=== PATIENT | male | born 1940 | race Caucasian/White ===

== ENCOUNTER → 2019-05-10 | Outpatient (CLI) | payer MEDICARE, BC ==
--- NOTE | 2019-05-10 17:01 | XR ---
EXAMINATION TYPE: XR chest 2V DATE OF EXAM: 05/10/2019 COMPARISON: NONE HISTORY: Chest pain TECHNIQUE: Frontal and lateral views of the chest are obtained. FINDINGS: Heart is enlarged. There is no heart failure. There is coarsening of the markings left low er lobe. Bony thorax is intact. IMPRESSION: Left lower lobe interstitial infiltrate and atelectasis. Cardiomegaly. No heart failure seen.
[2019-05-10 17:14] LABS: Basophils # (A) 0.1 k/uL (0-0.2); Basophils % (A) 1 %; Eosinophils # (A) 0.2 k/uL (0-0.7); Eosinophils % (A) 3 %; HCT 31.4 % (39.0-53.0); Lymphocytes # (A) 1.1 k/uL (1.0-4.8); Lymphocytes % (A) 19 %; MCH 29.7 pg (25.0-35.0); MCV 92.8 fL (80.0-100.0); Mean Platelet Volume 7.2; Monocytes # (A) 0.4 k/uL (0-1.0); Monocytes % (A) 7 %; Neutrophils # (A) 3.9 k/uL (1.3-7.7); Neutrophils % (A) 68 %; Platelet Count 367 k/uL (150-450); RBC 3.38 m/uL (4.30-5.90); RDW 14.1 % (11.5-15.5); WBC 5.7 k/uL (3.8-10.6)
[2019-05-10 23:42] LABS: African American GFR (CKD) 67.2 (60.0-200.0); Albumin/Globulin Ratio 1.9 (1.60-3.17); Anion Gap 9.9 mmol/L (4.00-12.00); BUN/Creat Ratio 20.83 Ratio (12.00-20.00); Calcium 9.3 mg/dL (8.7-10.3); Carbon Dioxide 26.1 mmol/L (21.6-31.8); Globulin 2.1 g/dL (1.6-3.3); Potassium 5.3 mmol/L (3.5-5.5); Total Bilirubin 0.6 mg/dL (0.2-1.2); Total Protein 6.1 g/dL (6.2-8.2)
[2019-05-10 23:49] LABS: T4, Free (Free Thyroxine) 1.3 ng/dL (0.80-1.80)
== END | disposition home or self-care (01) ==
LOC: LABWHC1 16:12
PROVIDERS: ATTEND Internal Medicine Cardiovascular Disease
DX: J98.11 Atelectasis (principal); R91.8 Other nonspecific abnormal finding of lung field; I11.9 Hypertensive heart disease without heart failure; I48.91 Unspecified atrial fibrillation
CPT/HCPCS: 36415; 71046; 80053; 83880; 84439; 84443; 85025

== ENCOUNTER 2019-05-15 15:18 | Inpatient (IN) | payer MEDICARE, BC ==
[2019-05-15 16:34] LABS: Glucose,Whole Blood 162 mg/dL (75-99)
[2019-05-15 16:39] VITALS: BMI 37.2
[2019-05-15] MEDS ORDERED: DIGOXIN 125 MCG TAB PO STA (17:15)
[2019-05-15] MEDS ORDERED: NITROGLYCERIN SL TABS 0.4 MG TAB SUBLINGUAL PRN (17:42)
[2019-05-15 18:03] LABS: Basophils % (A) 1 %; Eosinophils # (A) 0.3 k/uL (0-0.7); Eosinophils % (A) 4 %; HCT 32.8 % (39.0-53.0); HGB 10.5 gm/dL (13.0-17.5); Hypochromasia Slight; Lymphocytes # (A) 1.2 k/uL (1.0-4.8); Lymphocytes % (A) 19 %; MCHC 31.9 g/dL (31.0-37.0); MCV 94.2 fL (80.0-100.0); Mean Platelet Volume 7.1; Monocytes # (A) 0.4 k/uL (0-1.0); Monocytes % (A) 6 %; Neutrophils # (A) 4.2 k/uL (1.3-7.7); Neutrophils % (A) 68 %; Platelet Count 329 k/uL (150-450); RBC 3.48 m/uL (4.30-5.90); RDW 14.6 % (11.5-15.5); WBC 6.2 k/uL (3.8-10.6)
[2019-05-15 18:11] LABS: INR 1.1 (<1.2); Prothrombin Time 11.5 sec (9.0-12.0)
--- NOTE | 2019-05-15 18:42 | XR ---
EXAMINATION: XR chest 2V DATE AND TIME: 05/15/2019 5:39 PM CLINICAL INDICATION: PHH; pericardial effusion TECHNIQUE: Departmental protocol COMPARISON: 05/10/2019 FINDINGS: The lungs are clear except for the minimal partial left lung base airlessness seen on the p rior study. The pleural spaces are negative. The cardiac silhouette is markedly enlarged, unchanged. Tortuous thoracic aorta redemonstrated. The skeletal structures and soft tissues are negative for acute findings. IMPRESSION: Stable radiographic appearance.
[2019-05-15] MEDS: metFORMIN 500 MG TAB PO SCH (18:49)
[2019-05-15] MEDS: predniSONE 20 MG TAB PO SCH ×2 (18:50→21:37)
--- NOTE | 2019-05-15 19:51 | CONS ---
CONSULTATION Mr. Hodges is a 78-year-old gentleman with history of diabetes and hypertension who came to our office to be evaluated after a gap of 2 years on May 10 with complaints of exertional chest tightness, gaseous feeling and shortness of breath. He denies any dizziness, syncope. Usually the symptoms are resolved with rest. Denies any orthopnea or paroxysmal nocturnal dyspnea. His EKG showed evidence of atrial fibrillation with moderate to rapid ventricular response with a heart rate of 120. His blood pressure was about 124/80. The patient was found to have new onset atrial fibrillation and was advised to be hospitalized for further treatment. The patient, however, wanted outpatient treatment. The patient was started on Eliquis and also on metoprolol 25 mg p.o. b.i.d. He was also put on Imdur. He came today for followup. Had an echocardiogram done which showed a large pericardial effusion without any clear-cut tamponade picture. Because of new onset atrial fibrillation and large pericardial effusion, the patient is advised to be hospitalized for further evaluation. The patient is going to be started on steroids. Surgical consult will be obtained for possible pericardial window. PAST MEDICAL HISTORY: Significant for hypertension and hypercholesterolemia and also diabetes mellitus. 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 Patient had a nuclear stress test in 2017, which showed normal perfusion and function. MEDICATIONS: Include Celebrex 200 mg daily, lovastatin 40 mg daily, metformin 1000 mg twice daily. The patient was recently initiated on metoprolol 25 mg p.o. b.i.d., and Eliquis 5 mg p.o. b.i.d. ALLERGIES: THE PATIENT IS ALLERGIC TO NEUROMUSCULAR BLOCKERS. REVIEW OF SYSTEMS: The patient denied any recent weight gain. Negative for any visual changes or hearing loss. No history of any hemoptysis. Patient is complaining of shortness of breath. No orthopnea or paroxysmal nocturnal dyspnea. Negative for any claudication. Negative for nausea, hematuria, nocturia. Negative for any dizziness or memory loss, depression or hallucinations. PHYSICAL EXAMINATION: At this time reveals a 78-year-old gentleman who is alert, pleasant, does not appear to be in acute distress. Blood pressure is about 110/70, pulse rate is about 110. NECK: Supple. I could not see any definite jugular venous distention. HEART: S1 and S2 is heard. Irregular heart sounds, distant heart sounds. Lungs appear to be clear with some diminished breath sounds at bases. ABDOMEN: Soft. EXTREMITIES: No significant edema. IMPRESSION: 1. New onset atrial fibrillation. 2. Large pericardial effusion without any clear cut tamponade. 3. Hypertension. 4. Diabetes mellitus. 5. Hypercholesterolemia. PLAN: Admit patient to the hospital. Continue with beta blockers and probably add a small dose of digoxin for rate control. Continue IV fluids. Start him on steroids. Get a surgical consult for possible pericardial window. Further recommendations depending upon the clinical course. MMODL / IJN: [id number] /
[2019-05-15 20:48] LABS: Glucose,Whole Blood 151 mg/dL (75-99)
[2019-05-15] MEDS: METOPROLOL TARTRATE 25 MG TAB PO SCH (21:37)
[2019-05-15] MEDS: SODIUM CHLORIDE 0.9% 1,000 ML IV SCH (21:42)
[2019-05-16] MEDS ORDERED: DIGOXIN 125 MCG TAB PO ONE
[2019-05-16 06:23] LABS: Glucose,Whole Blood 149 mg/dL (75-99)
[2019-05-16 06:59] LABS: Basophils % (A) 0 %; Eosinophils % (A) 0 %; HCT 33.2 % (39.0-53.0); HGB 10.3 gm/dL (13.0-17.5); Hypochromasia Slight; Lymphocytes # (A) 0.6 k/uL (1.0-4.8); Lymphocytes % (A) 8 %; MCH 29.5 pg (25.0-35.0); MCHC 31.1 g/dL (31.0-37.0); Mean Platelet Volume 6.9; Monocytes # (A) 0.2 k/uL (0-1.0); Monocytes % (A) 3 %; Neutrophils # (A) 5.8 k/uL (1.3-7.7); Neutrophils % (A) 87 %; Platelet Count 328 k/uL (150-450); RBC 3.49 m/uL (4.30-5.90); WBC 6.6 k/uL (3.8-10.6)
[2019-05-16] MEDS: MELOXICAM 7.5 MG TAB PO SCH (08:48)
[2019-05-16] MEDS: ISOSORBIDE MONONITRATE ER 30 MG TAB.ER.24H PO SCH (08:48)
[2019-05-16] MEDS: PRAVASTATIN SODIUM 40 MG TAB PO SCH (08:49)
[2019-05-16] MEDS: SODIUM CHLORIDE 0.9% 1,000 ML IV SCH ×2 (08:49→20:52)
[2019-05-16] MEDS: predniSONE 20 MG TAB PO SCH (08:49)
[2019-05-16] MEDS: METOPROLOL TARTRATE 25 MG TAB PO SCH ×3 (08:51→20:52)
--- NOTE | 2019-05-16 08:56 | P.GSCN ---
History of Present Illness Consult date: 05/16/19 Reason for Consult: Large pericardial effusion Requesting physician: Jarred Velazco History of present illness: This is a 78-year-old gentleman who follows on an outpatient basis with Dr. Mario for primary care and Dr. Velazco for cardiology. He has a previous medical history of hypertension, hyperlipidemia, diabetes, skin cancer, and recent diagnosis of new onset atrial fibrillation on Eliquis for anticoa gulation. He had been lost to follow-up with cardiology for the past 2-3 years but began to develop chest congestion. He reported symptoms of increased shortness of breath with exertion, not much shortness of breath at rest, no lower extremity edema, and he denied any chest pain. He denied any other aggravating or alleviating symptoms. He sought care at Dr. Velazco's office and was found to be in atrial fibrillation at that time, he was recommended to be hospitalized for treatment, however the patient did not want to be admitted to the hospital. He was prescribed new medications including metoprolol, Imdur, and Eliquis and he began to feel better. Upon follow-up Dr. Velazco per formed a transthoracic echocardiogram in the cardiology office, results are not available but per Dr. Velazco's note the echocardiogram demonstrated a large pericardial effusion without tamponade physiology. Due to these findings the patient was direct admitted to [facility] with consultation placed for cardiothoracic surgery for possible pericardial window. Review of Systems Review of systems was completed and was negative except as noted. 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 History of Any Multi-Drug Resistant Organisms: None Reported Past Surgical History: Adenoidectomy, Cholecystectomy, Tonsillectomy Past Anesthesia/Blood Transfusion Reactions: No Reported Reaction Past Psychological History: No Psychological Hx Reported Smoking Status: Never smoker Past Alcohol Use History: Rare Past Drug Use History: None Reported - Past Family History Father Family Medical History: Prostate Disorder Additional Family Medical History / Comment(s): prostate CA Mother Family Medical History: Cancer Medications and Allergies Home Medications Medication Instructions Recorded Confirmed Type Apixaban [Eliquis] 5 mg PO BID 05/15/19 05/15/19 History Celecoxib [CeleBREX] 200 mg PO DAILY 05/15/19 05/15/19 History Cyanocobalamin [Vitamin B-12] 500 mcg PO DAILY 05/15/19 05/15/19 History Isosorbide Mononitrate ER [Imdur] 30 mg PO DAILY 05/15/19 05/15/19 History Krill Oil 500 mg PO DAILY 05/15/19 05/15/19 History Lisinopril [Zestril] 10 mg PO DAILY 05/15/19 05/15/19 History Metoprolol Tartrate 25 mg PO BID 05/15/19 05/15/19 History Nitroglycerin 0.4 mg SUBLINGUAL Q5M PRN 05/15/19 05/15/19 History Pravastatin Sodium [Pravachol] 40 mg PO DAILY 05/15/19 05/15/19 History Ubidecarenone [Co Q-10] 100 mg PO DAILY 05/15/19 05/15/19 History metFORMIN HCL 1,000 mg PO HS 05/15/19 05/15/19 History Allergies Allergy/AdvReac Type Severity Reaction Status Date / Time No Known Drug Allergies Allergy Itching Verified 05/15/19 18:35 Surgical - Exam Vital Signs Temp Pulse Resp BP Pulse Ox 97.4 F L 114 H 16 102/51 91 L 05/15/19 17:44 05/15/19 17:44 05/15/19 17:44 05/15/19 17:44 05/15/19 17:44 - General well developed, well nourished, no distress, no pain, obese - Eyes PERRL, normal ocular movement - ENT no hearing loss, dentures - Neck no masses, no bruits, trachea midline - Respiratory Lungs sounds clear bilaterally. Respirations even, nonlabored. Currently on room air with oxygen saturation 91-92%. No clubbing or cyanosis noted. - Cardiovascular S1, S2 present. No distant heart sounds noted. Irregular rate and rhythm, atrial fibrillation on telemetry. Palpable peripheral pulses bilaterally. No edema present. No calf pain or tenderness noted. - Abdomen Abdomen: soft, non tender, bowel sounds - Genitourinary Deferred - Rectum Deferred - Integumentary no rash, no growths - Neurologic normal coordination, normal sensation - Musculoskeletal normal posture - Psychiatric oriented to time, oriented to person, oriented to place, speech is normal, memory intact Results - Labs 05/16/19 06:02 Abnormal Lab Results - Last 24 Hours (Table) 05/15/19 05/15/19 05/15/19 Range/Units 16:33 17:45 20:48 RBC 3.48 L (4.30-5.90) m/uL Hgb 10.5 L (13.0-17.5) gm/dL Hct 32.8 L (39.0-53.0) % Lymphocytes # (1.0-4.8) k/uL POC Glucose (mg/dL) 162 H 151 H (75-99) mg/dL 05/16/19 05/16/19 Range/Units 06:02 06:22 RBC 3.49 L (4.30-5.90) m/uL Hgb 10.3 L (13.0-17.5) gm/dL Hct 33.2 L (39.0-53.0) % Lymphocytes # 0.6 L (1.0-4.8) k/uL POC Glucose (mg/dL) 149 H (75-99) mg/dL - Imaging Chest x-ray: report reviewed, image reviewed Assessment and Plan Assessment: 1. Large pericardial effusion without tamponade physiology 2. New onset atrial fibrillation, on Eliquis for anticoagulation, last dose 05/15/2019 3. Hypertension 4. Hyperlipidemia 5. Diabetes Plan: The patient was seen and examined at the bedside. Chart/diagnostics were reviewed. The case will be discussed in detail with Dr. Schultz. At this time the patient is in no acute distress. Continue current medication regimen. Continue to hold Eliquis until recommendations are made regarding pericardial effusion management. Usual treatment for pericardial effusion, namely pericardial drain versus pericardial window were discussed with the patient. Transthoracic echocardiogram was repeated this morning, will review the study with Dr. Schultz. More recommendations to follow. Thank you Dr. Velazco for this consult. We look forward to continuing to work with you in the care of your patient. Time with Patient: Greater than 30
--- NOTE | 2019-05-16 08:57 | ECHOF ---
Referral Reason:pericardial effusion MEASUREMENTS -------- HEIGHT: 172.7 cm WEIGHT: 110.7 kg BP: 115/81 IVSd: 1.5 cm (0.6 - 1.1) LVIDd: 5.3 cm (3.9 - 5.3) LVPWd: 1.4 cm (0.6 - 1.1) IVSs: 2.6 cm LVIDs: 1.4 cm LVPWs: 1.7 cm FINDINGS -------- Sinus rhythm. Limited Study for pericardial effusion. Overall left ventricular systolic function is normal with, an EF between 55 - 60 %. There is a large, generalized pericardial effusion present. There is evidence of cardiac tamponade. CONCLUSIONS -------- 1. Sinus rhythm. 2. Limited Study for pericardial effusion. 3. Overall left ventricular systolic function is normal with, an EF between 55 - 60 %. 4. There is a large, generalized pericardial effusion present. 5. There is possible cardiac tamponade. 7. study suboptimal for tamponade evaluation [employer] TECHNICIAN: Tanesha Mg RDCS
[2019-05-16 11:37] LABS: Glucose,Whole Blood 209 mg/dL (75-99)
[2019-05-16] MEDS: INSULIN ASPART (NovoLOG) 100 UNIT/ML VIAL SQ SCH ×3 (12:00→20:51)
[2019-05-16 12:03] LABS: Albumin 3.5 g/dL (3.5-5.0); Calcium 8.8 mg/dL (8.4-10.2); Potassium 5.1 mmol/L (3.5-5.1); Total Bilirubin 0.7 mg/dL (0.2-1.3); Total Protein 6.4 g/dL (6.3-8.2)
--- NOTE | 2019-05-16 14:50 | P.PN ---
Subjective Progress Note Date: 05/16/19 This is a 78-year-old gentleman who follows on an outpatient basis with Dr. Mario for primary care and Dr. Velazco for cardiology. He has a previous medical history of hypertension, hyperlipidemia, diabetes, skin cancer, and recent diagnosis of new onset atrial fibrillation on Eliquis for anticoagula tion. Patient had been experiencing symptoms of exertional shortness of breath and for this reason went to see Dr. Velazco, an echocardiogram with Doppler study was performed in the office which revealed a large pericardial effusion and patient was sent over to the hospital for further evaluation and treatment. I pressure today 133/80 with a heart rate of 118, 93% on room air. White blood cell count 6.6, hemoglobin 10.3, platelet count 328. Sodium 140, potassium 5.1, BUN 26 and creatinine 1.0. BNP 2550, TSH 0.56. A limited echocardiogram with Doppler study was performed here which showed a normal ejection fraction with a large generalized pericardial effusion and possible tamponade not. Objective - Vital Signs Vital signs: Vital Signs Temp 98.7 F 05/16/19 11:22 Pulse 111 H 05/16/19 11:22 Resp 18 05/16/19 11:22 BP 133/81 05/16/19 11:22 Pulse Ox 93 L 05/16/19 11:22 Intake & Output 05/15/19 05/16/19 05/16/19 18:59 06:59 18:59 Intake Total 225 480 Output Total 600 250 Balance -600 -25 480 Weight 111 kg 111.5 kg Intake: Intake, IV Titration 225 Amount Sodium Chloride 0.9% 1, 225 000 ml @ 75 mls/hr IV . [id number] [facility] Rx#:[id number] Oral 480 Output: Urine 600 250 Other: Voiding Method Toilet Toilet Toilet # Voids 2 - Exam PHYSICAL EXAMINATION: GENERAL: 78-year-old gentleman in no acute distress at the time of my examination HEENT: Head is atraumatic, normocephalic. Pupils equal, round. Sclera anicteric. Conjunctiva are clear. Mucous membranes of the mouth are moist. Neck is supple. There is no elevated jugular venous pressure. No carotid bru it is heard. HEART EXAMINATION: Heart S1 and S2 irregularly irregular CHEST EXAMINATION: Lungs reveal diminished air entry to bilateral bases. ABDOMEN: Soft, nontender. Bowel sounds are heard. No organomegaly noted. EXTREMITIES: 2+ peripheral pulses with no evidence of peripheral edema and no calf tenderness noted. NEUROLOGIC patient is awake, alert and oriented X3. . - Labs CBC & Chem 7: 05/16/19 06:02 05/16/19 06:02 Labs: Abnormal Lab Results - Last 24 Hours (Table) 05/15/19 05/15/19 05/15/19 Range/Units 16:33 17:45 20:48 RBC 3.48 L (4.30-5.90) m/uL Hgb 10.5 L (13.0-17.5) gm/dL Hct 32.8 L (39.0-53.0) % Lymphocytes # (1.0-4.8) k/uL BUN (9-20) mg/dL Glucose (74-99) mg/dL POC Glucose (mg/dL) 162 H 151 H (75-99) mg/dL 05/16/19 05/16/19 05/16/19 Range/Units 06:02 06:02 06:22 RBC 3.49 L (4.30-5.90) m/uL Hgb 10.3 L (13.0-17.5) gm/dL Hct 33.2 L (39.0-53.0) % Lymphocytes # 0.6 L (1.0-4.8) k/uL BUN 26 H (9-20) mg/dL Glucose 157 H (74-99) mg/dL POC Glucose (mg/dL) 149 H (75-99) mg/dL 05/16/19 Range/Units 11:35 RBC (4.30-5.90) m/uL Hgb (13.0-17.5) gm/dL Hct (39.0-53.0) % Lymphocytes # (1.0-4.8) k/uL BUN (9-20) mg/dL Glucose (74-99) mg/dL POC Glucose (mg/dL) 209 H (75-99) mg/dL Assessment and Plan Plan: Assessment and plan #1 new onset atrial fibrillation, paroxysmal #2 large pericardial effusion without any clear-cut tympanotomy #3 hypertension #4 diabetes #5 hyperlipidemia Plan Eliquis continues to be on hold, patient has been seen and evaluated by cardiothoracic surgery and the plan is to proceed with pericardial window. We will continue to follow. DNP note has been reviewed, I agree with a documented findings and plan of care. Patient was seen and examined.
[2019-05-16 16:30] LABS: Glucose,Whole Blood 177 mg/dL (75-99)
[2019-05-16] MEDS: metFORMIN 500 MG TAB PO SCH (16:50)
[2019-05-16 20:47] LABS: Glucose,Whole Blood 210 mg/dL (75-99)
[2019-05-17 06:17] LABS: Glucose,Whole Blood 107 mg/dL (75-99)
[2019-05-17] MEDS: INSULIN ASPART (NovoLOG) 100 UNIT/ML VIAL SQ SCH ×4 (06:26→20:42)
[2019-05-17 06:28] LABS: HCT 33.2 % (39.0-53.0); HGB 10.3 gm/dL (13.0-17.5); Hypochromasia Slight; MCH 29.4 pg (25.0-35.0); MCHC 30.9 g/dL (31.0-37.0); Mean Platelet Volume 6.9; Platelet Count 363 k/uL (150-450); RBC 3.49 m/uL (4.30-5.90); RDW 14.2 % (11.5-15.5); WBC 9.7 k/uL (3.8-10.6)
[2019-05-17 06:36] LABS: African American GFR (CKD) >90 (>60 ml/min/1.73 sqM); Anion Gap 11 mmol/L; Blood Urea Nitrogen 27 mg/dL (9-20); Calcium 8.8 mg/dL (8.4-10.2); Carbon Dioxide 23 mmol/L (22-30); Chloride 106 mmol/L (98-107); Glucose 103 mg/dL (74-99); Potassium 4.8 mmol/L (3.5-5.1); Sodium 140 mmol/L (137-145)
[2019-05-17 06:40] LABS: INR 1.1 (<1.2); Partial Thromboplastin Time 24.3 sec (22.0-30.0); Prothrombin Time 11.7 sec (9.0-12.0)
[2019-05-17] MEDS: MELOXICAM 7.5 MG TAB PO SCH (07:43)
[2019-05-17] MEDS: METOPROLOL TARTRATE 25 MG TAB PO SCH ×3 (07:43→20:15)
[2019-05-17] MEDS: PRAVASTATIN SODIUM 40 MG TAB PO SCH (07:43)
[2019-05-17] MEDS: ISOSORBIDE MONONITRATE ER 30 MG TAB.ER.24H PO SCH (07:43)
[2019-05-17] MEDS ORDERED: IV FLUID CONTINUATION 1,000 ML IV ONE (10:08)
[2019-05-17 10:23] LABS: Glucose,Whole Blood 95 mg/dL (75-99)
[2019-05-17] MEDS ORDERED: ONDANSETRON 4 MG/2 ML VIAL IVP ONE (10:28)
--- NOTE | 2019-05-17 10:47 | PN ---
PROGRESS NOTE Mr. Hodges is a 78-year-old male with recently diagnosed atrial fibrillation symptoms of dyspnea, was found to have large amount of pericardial effusion of unknown etiology. He continued to have some dyspnea on exertion, although better. He is still in atrial fibrillation with controlled ventricular response. He has no chest pain. No dizziness. No palpitation. He was evaluated by Dr. Schultz and scheduled to undergo pericardial window today. He continues to be on isosorbide mononitrate 30 mg daily. His anticoagulation is on hold. He is on Mobic, metformin 1 gram twice a day, metoprolol tartrate 25 mg 3 times a day and pravastatin 40 mg daily. PHYSICAL EXAMINATION: Blood pressure 145/70 with the heart rate in the 70s. LUNGS: Clear. HEART: Irregular, irregular. S1, S2. No S3. No rub. ABDOMEN: Soft, nontender. EXTREMITIES: No edema. LAB DATA: Lab data revealed a hemoglobin 10.3, BUN and creatinine 27 and 0.93. IMPRESSION: 1. Large pericardial effusion of unclear etiology. Scheduled for pericardial window. 2. Atrial fibrillation, recent onset. 3. Hyperlipidemia. 4. Diabetes mellitus. RECOMMENDATION: Patient will proceed with the pericardial window today, anticoagulation will be re- initiated after and then depending on the results of his fluid analysis, further recommendation will be made. MMODL / IJN: [id number] /
[2019-05-17 11:30] LABS: Glucose,Whole Blood 95 mg/dL (75-99)
[2019-05-17 13:59] LABS: Glucose,Whole Blood 82 mg/dL (75-99)
[2019-05-17] MEDS: SODIUM CHLORIDE 0.9% 1,000 ML IV SCH (15:39)
[2019-05-17] MEDS ORDERED: FUROSEMIDE 10 MG/ML 2 ML VIAL ONE (15:41)
[2019-05-17] MEDS ORDERED: SUCCINYLCHOLINE CHLORIDE 100 MG/5 ML SYR IV ONE (15:41)
[2019-05-17] MEDS ORDERED: NEOSTIGMINE 1 MG/ML 10 ML VIAL ONE (15:41)
[2019-05-17] MEDS ORDERED: ROCURONIUM BROMIDE 10 MG/ML 10 ML VIAL IV ONE (15:41)
[2019-05-17] MEDS ORDERED: GLYCOPYRROLATE 0.2 MG/ML 2 ML VIAL ONE (15:41)
[2019-05-17] MEDS ORDERED: fentaNYL (PF) 50 MCG/ML 2 ML AMP ONE (15:41)
[2019-05-17] MEDS ORDERED: LIDOCAINE 1% INJ 10MG/ML (20 ML MDV) ONE (15:41)
[2019-05-17] MEDS ORDERED: MIDAZOLAM 2 MG/2 ML VIAL ONE (15:41)
[2019-05-17] MEDS ORDERED: PHENYLEPHRINE-0.9% NACL SYG 1 MG/10 ML SYRINGE ONE (15:41)
[2019-05-17] MEDS ORDERED: ETOMIDATE 2 MG/ML 10 ML VIAL ONE (15:41)
[2019-05-17] MEDS ORDERED: SODIUM CHLORIDE 0.9% 1,000 ML IV ONE (16:03)
[2019-05-17] MEDS ORDERED: LACTATED RINGERS 1,000 ML IV ONE (16:35)
[2019-05-17] MEDS ORDERED: LABETALOL 5 MG/ML VIAL MDV IVP ONE (17:50)
--- NOTE | 2019-05-17 18:06 | XR ---
EXAMINATION TYPE: XR chest 1V portable DATE OF EXAM: 05/17/2019 COMPARISON: 05/15/2019 HISTORY: Pericardial window. Surgery. TECHNIQUE: Single frontal view of the chest is obtained. FINDINGS: There is pulmonary vascular congestion. Heart is enlarged. There is pulmonary edema. There are chest leads. There is some infiltrate and atelectasis left lower lobe. IMPRESSION: There is new congestive heart failure compared to last exam.
[2019-05-17] MEDS: metFORMIN 500 MG TAB PO SCH (20:14)
[2019-05-17] MEDS: HYDROcodone/APAP 5-325MG 1 EACH TAB PO PRN (20:14)
[2019-05-17 20:36] LABS: Glucose,Whole Blood 173 mg/dL (75-99)
[2019-05-18] MEDS: SODIUM CHLORIDE 0.9% 1,000 ML IV SCH ×2 (02:04→17:01)
[2019-05-18] MEDS: HYDROcodone/APAP 5-325MG 1 EACH TAB PO PRN (02:07)
[2019-05-18 06:33] LABS: Glucose,Whole Blood 124 mg/dL (75-99)
[2019-05-18] MEDS: INSULIN ASPART (NovoLOG) 100 UNIT/ML VIAL SQ SCH ×4 (06:34→20:18)
[2019-05-18 07:33] LABS: HCT 33.9 % (39.0-53.0); HGB 10.8 gm/dL (13.0-17.5); Hypochromasia Slight; MCH 30.1 pg (25.0-35.0); MCV 94.2 fL (80.0-100.0); Platelet Count 348 k/uL (150-450); RBC 3.59 m/uL (4.30-5.90); WBC 9.4 k/uL (3.8-10.6)
[2019-05-18 07:46] LABS: Calcium 8.6 mg/dL (8.4-10.2); Potassium 4.8 mmol/L (3.5-5.1)
--- NOTE | 2019-05-18 07:48 | OP ---
OPERATIVE REPORT DATE OF THE SURGERY: 05/17/2019 SURGEON: Dr. Morgan Anaya. APPOINTMENT SPECIALIST: Chirag aGuthier PREOPERATIVE DIAGNOSIS: Large pericardial effusion with early tamponade physiology. POSTOPERATIVE DIAGNOSIS: Large bloody pericardial effusion. PROCEDURE: Subxiphoid pericardiostomy. INDICATION FOR SURGERY: The patient is a 78-year-old gentleman who is known to be in atrial fibrillation recently and started on anticoagulation and treatment. He had an echocardiogram as an outpatient that showed large pericardial effusion. The patient was admitted to the hospital for assessment and repeat echo in the hospital confirmed the effusion and with even early signs of tamponade, although the patient's hemodynamics were stable. The patient has been taken for elective pericardial window today. The risks, benefits, and alternative were discussed with him and his family. They understood and agreed to proceed. DESCRIPTION OF THE PROCEDURE: The patient in supine position. The right radial arterial line was started and subsequently general endotracheal anesthesia was induced. His systolic blood pressure went from around 180 to around 90 systolic. The chest, abdomen and both lower extremities were prepped and draped using ChloraPrep. Ioban was used to cover the skin. A 5 cm incision was made centered on the xiphoid bone. Using the Bovie, dissection proceeded under the xiphoid bone and went midline into the mediastinal fat. The anterior surface of the pericardium was exposed and it was quite deep in view of the patient's body habitus. We made an incision with a 15 blade and suctioned a total of 1100 mL of dark bloody effusion. A piece of pericardium was excised for pathology. The surface of the heart appeared normal and the pericardium did not appear thickened. A 19-Arabic Liam drain was left in the posterior pericardium under vision and brought through a separate stab incision and affixed to the skin. The incision was closed using Vicryl 0 for the fascia, Vicryl 2-0 for the subcutaneous tissue and Vicryl 4-0 for the skin in a subcuticular manner. The pericardial fluid will be sent for cytology. The patient was extubated in the operating room and transferred to the recovery room in stable condition. MMODL / IJN: [id number] /
--- NOTE | 2019-05-18 08:50 | XR ---
EXAMINATION TYPE: XR chest 1V portable DATE OF EXAM: 05/18/2019 COMPARISON: 05/17/2019 INDICATION: Post pericardial window TECHNIQUE: Single frontal view of the chest is obtained. FINDINGS: The heart size is mildly prominent. The pulmonary vasculature is normal. Mild infiltrate is in the left base IMPRESSION: 1. Mild cardiomegaly. 2. Left lower lobe infiltrate.
[2019-05-18] MEDS: MELOXICAM 7.5 MG TAB PO SCH (09:07)
[2019-05-18] MEDS: ISOSORBIDE MONONITRATE ER 30 MG TAB.ER.24H PO SCH (09:07)
[2019-05-18] MEDS: METOPROLOL TARTRATE 25 MG TAB PO SCH ×3 (09:09→20:18)
[2019-05-18] MEDS: PRAVASTATIN SODIUM 40 MG TAB PO SCH (09:10)
[2019-05-18 11:30] LABS: Glucose,Whole Blood 136 mg/dL (75-99)
--- NOTE | 2019-05-18 13:26 | P.PN ---
Subjective Progress Note Date: 05/18/19 Principal diagnosis: Pericardial effusion This is a pleasant 78-year-old gentleman who follows with Dr. Velazco in the office. He was recently diagnosed atrial fibrillation with symptoms of dyspnea and was found to have large amount of pericardial effusion of unknown etiology by echo. He underwent pericardial window yesterday with 1100 mL of bloody drainage. His anticoagulation has been on hold. Upon examination, patient is sitting up in a chair. He has discomfort as site of chest tube but no other chest pain. He has no dizziness, palpitations and his breathing is at his baseline. He remains in atrial fibrillation with a fairly well-controlled ventricular response. He is currently on isosorbide 30 mg by mouth daily, metoprolol 25 mg by mouth 3 times a day and pravastatin 40 mg by mouth daily. Objective - Vital Signs Vital signs: Vital Signs Temp 97 F L 05/18/19 12:00 Pulse 100 05/18/19 12:00 Resp 18 05/18/19 12:00 BP 119/82 05/18/19 12:00 Pulse Ox 96 05/18/19 07:19 Intake & Output 05/17/19 05/18/19 05/18/19 18:59 06:59 18:59 Intake Total 910 368 Output Total 603 910 400 Balance 307 -910 -32 Intake: IV 910 Invasive Line 2 10 Oral 368 Output: Chest Tube Drainage 210 350 Chest Tube Mediastinal 210 350 Urine 600 700 50 Estimated Blood Loss 3 Other: Voiding Method Toilet Urinal Urinal # Voids 2 350 - Exam PHYSICAL EXAMINATION: HEENT: Head is atraumatic, normocephalic. Pupils equal, round. Neck is supple. There is no elevated jugular venous pressure. HEART EXAMINATION: Heart sounds irregularly irregular, S1 and S2 normal. No murmur or gallop heard. CHEST EXAMINATION: Lungs are clear to auscultation and precussion. No chest wall tenderness is noted on palpation or with deep breathing. Chest tube noted ABDOMEN: Soft, obese, nontender. Bowel sounds are heard. No organomegaly noted. EXTREMITIES: No evidence of peripheral edema and no calf tenderness noted. NEUROLOGIC patient is awake, alert and oriented x3. . - Labs CBC & Chem 7: 05/18/19 06:52 05/18/19 06:52 Labs: Abnormal Lab Results - Last 24 Hours (Table) 05/17/19 05/18/19 05/18/19 Range/Units 20:35 06:32 06:52 RBC 3.59 L (4.30-5.90) m/uL Hgb 10.8 L (13.0-17.5) gm/dL Hct 33.9 L (39.0-53.0) % BUN (9-20) mg/dL Glucose (74-99) mg/dL POC Glucose (mg/dL) 173 H 124 H (75-99) mg/dL 05/18/19 05/18/19 Range/Units 06:52 11:29 RBC (4.30-5.90) m/uL Hgb (13.0-17.5) gm/dL Hct (39.0-53.0) % BUN 27 H (9-20) mg/dL Glucose 119 H (74-99) mg/dL POC Glucose (mg/dL) 136 H (75-99) mg/dL Assessment and Plan Assessment: #1 large pericardial effusion of unclear etiology, status post pericardial window with chest tube in place #2 recent onset atrial fibrillation, persistent #3 hyperlipidemia #4 diabetes mellitus Plan: From cardiology perspective, after discussion with Tanesha Baltazar NP-Maddie, we will resume anticoagulation. We will continue to follow the patient and provide further recommendations accordingly. PRESSFITTER note has been reviewed, I agree with a documented findings and plan of care. Patient was seen and examined.
--- NOTE | 2019-05-18 14:42 | P.PN ---
Subjective Progress Note Date: 05/18/19 Principal diagnosis: Large bloody pericardial effusion. Previous medical history of hypertension, hyperlipidemia, diabetes, skin cancer, recent diagnosis of new onset atrial fibrillation on closer anticoagulation. POD #1 subxiphoid pericardiostomy The patient is currently sitting up in a recliner in no acute distress. States pain is controlled on current medication regimen. Denies shortness of breath. Subxiphoid pericardiostomy tube present, remains to waterseal. Patient has been ambulatory around the room without difficulty. No new concerns. Objective - Vital Signs Vital signs: Vital Signs Temp 97.4 F L 05/18/19 07:19 Pulse 90 05/18/19 08:00 Resp 20 05/18/19 08:00 BP 119/74 05/18/19 07:19 Pulse Ox 96 05/18/19 07:19 Intake & Output 05/17/19 05/18/19 05/18/19 18:59 06:59 18:59 Intake Total 910 360 Output Total 603 910 400 Balance 307 -910 -40 Intake: IV 910 Invasive Line 2 10 Oral 360 Output: Chest Tube Drainage 210 350 Chest Tube Mediastinal 210 350 Urine 600 700 50 Estimated Blood Loss 3 Other: Voiding Method Toilet Urinal Urinal # Voids 2 350 - Constitutional General appearance: Present: cooperative, no acute distress, obese - Respiratory Details: Lungs sounds clear bilaterally. Respirations even, nonlabored. Currently on 4 L nasal cannula with oxygen saturation 94%. Only able to achieve 750 mL on his incentive spirometry. - Cardiovascular Details: S1, S2 present. No distant heart sounds noted. Irregular rate and rhythm, uncontrolled atrial fibrillation on telemetry. Palpable peripheral pulses bilaterally. No edema present. No calf pain or tenderness noted. Subxiphoid pericardiostomy tube present to waterseal, 210 mL serosanguineous drainage overnight, 350 mL since surgery, no air leak present. - Gastrointestinal Gastrointestinal Comment(s): Abdomen soft, nontender, nondistended. Bowel sounds present. Tolerating diet. - Genitourinary Genitourinary Comment(s): Continues to void clear, yellow urine. - Integumentary Integumentary Comment(s): Skin is warm and dry with evidence of good perfusion. - Neurologic Neurologic: Present: CNII-XII intact - Musculoskeletal Musculoskeletal: Present: gait normal, strength equal bilaterally - Psychiatric Psychiatric: Present: A&O x's 3, appropriate affect, intact judgment & insight - Allied health notes Allied health notes reviewed: nursing - Labs CBC & Chem 7: 05/18/19 06:52 05/18/19 06:52 Labs: Abnormal Lab Results - Last 24 Hours (Table) 05/17/19 05/18/19 05/18/19 Range/Units 20:35 06:32 06:52 RBC 3.59 L (4.30-5.90) m/uL Hgb 10.8 L (13.0-17.5) gm/dL Hct 33.9 L (39.0-53.0) % BUN (9-20) mg/dL Glucose (74-99) mg/dL POC Glucose (mg/dL) 173 H 124 H (75-99) mg/dL 05/18/19 Range/Units 06:52 RBC (4.30-5.90) m/uL Hgb (13.0-17.5) gm/dL Hct (39.0-53.0) % BUN 27 H (9-20) mg/dL Glucose 119 H (74-99) mg/dL POC Glucose (mg/dL) (75-99) mg/dL - Imaging and Cardiology Chest x-ray: report reviewed, image reviewed Assessment and Plan Assessment: 1. Large bloody pericardial effusion, status post subxiphoid pericardiostomy 2. New onset atrial fibrillation, on Eliquis for anticoagulation 3. Hypertension 4. Hyperlipidemia 5. Diabetes Plan: 1. Continue subxiphoid pericardiostomy tube for another 24 hours to waterseal. Monitor drainage. 2. Atrial fibrillation management per cardiology. May restart Eliquis for anticoagulation from our standpoint. 3. Wean O2 as tolerated. Encourage incentive spirometry use 10 times every hour while awake. 4. Increase activity, ambulate in hallway. 5. Pain control with current medication regimen. 6. More recommendations to follow. Time with Patient: Greater than 30
[2019-05-18] MEDS ORDERED: SENNOSIDES-DOCUSATE SODIUM 1 EACH TAB PO PRN (15:14)
[2019-05-18 16:57] LABS: Glucose,Whole Blood 137 mg/dL (75-99)
[2019-05-18] MEDS: metFORMIN 500 MG TAB PO SCH (17:01)
[2019-05-18 20:16] LABS: Glucose,Whole Blood 152 mg/dL (75-99)
[2019-05-18] MEDS: APIXABAN 5 MG TAB PO SCH (20:19)
[2019-05-19] MEDS: SODIUM CHLORIDE 0.9% 1,000 ML IV SCH ×2 (05:00→15:15)
[2019-05-19 05:33] LABS: HCT 34.7 % (39.0-53.0); HGB 11.1 gm/dL (13.0-17.5); Hypochromasia Slight; MCH 29.9 pg (25.0-35.0); MCHC 32.1 g/dL (31.0-37.0); Mean Platelet Volume 7.1; Platelet Count 313 k/uL (150-450); RBC 3.73 m/uL (4.30-5.90); RDW 14.7 % (11.5-15.5); WBC 8.4 k/uL (3.8-10.6)
[2019-05-19 05:44] LABS: African American GFR (CKD) >90 (>60 ml/min/1.73 sqM); Anion Gap 8 mmol/L; Blood Urea Nitrogen 23 mg/dL (9-20); Calcium 8.7 mg/dL (8.4-10.2); Carbon Dioxide 25 mmol/L (22-30); Chloride 106 mmol/L (98-107); Glucose 107 mg/dL (74-99); Potassium 4.4 mmol/L (3.5-5.1); Sodium 139 mmol/L (137-145)
[2019-05-19] MEDS: INSULIN ASPART (NovoLOG) 100 UNIT/ML VIAL SQ SCH ×4 (06:39→21:16)
[2019-05-19 06:44] LABS: Glucose,Whole Blood 111 mg/dL (75-99)
--- NOTE | 2019-05-19 07:47 | XR ---
EXAMINATION TYPE: XR chest 2V DATE OF EXAM: 05/19/2019 COMPARISON: 05/18/2019 HISTORY: 78-year-old male effusion TECHNIQUE: PA and lateral views FINDINGS: Heart mildly enlarged. Continued retrocardiac and left basilar opacity with small effusion. Some impr ovement in aeration from prior exam. IMPRESSION: 1. Mild cardiomegaly. 2. Small left pleural effusion with left basilar and retrocardiac atelectasis and/or consolidation sh ows slight improvement prior.
[2019-05-19] MEDS: APIXABAN 5 MG TAB PO SCH (08:31)
[2019-05-19] MEDS: PRAVASTATIN SODIUM 40 MG TAB PO SCH (08:31)
[2019-05-19] MEDS: METOPROLOL TARTRATE 25 MG TAB PO SCH ×3 (08:31→21:17)
[2019-05-19] MEDS: MELOXICAM 7.5 MG TAB PO SCH (08:33)
[2019-05-19] MEDS: ISOSORBIDE MONONITRATE ER 30 MG TAB.ER.24H PO SCH (08:38)
[2019-05-19 11:58] LABS: Glucose,Whole Blood 120 mg/dL (75-99)
--- NOTE | 2019-05-19 12:18 | PN ---
PROGRESS NOTE Ms Hodges is a 78-year-old gentleman who was admitted to hospital with new onset atrial fibrillation and large pericardial effusion. He underwent pericardial window, still has the mediastinal tube in place. He is otherwise doing well, remains in AFIB with controlled ventricular rate. His anticoagulant had been restarted yesterday. PHYSICAL EXAM: He is comfortable at rest. Heart rate is 97 beats per minute, blood pressure is 137/80, respiratory rate is 16, O2 sat is 92% on room air. There is no jugular venous distention. Chest exam reveals good air entry bilaterally. Heart exam reveals first and second heart sounds. No gallop. No pericardial rub. Abdomen is soft. Exam of the extremities reveals mild edema, peripheral pulses are felt. Labs show a hemoglobin of 11.1, potassium is 4.4, creatinine is 0.9. Patient is currently on Eliquis 5 b.i.d., Imdur 30 q. daily, Lopressor 25 t.i.d., Pravachol 40 q. daily. ASSESSMENT: 1. Persistent atrial fibrillation with controlled ventricular rate. 2. Large pericardial effusion, status post pericardial window. PLAN: Patient is stable from cardiac standpoint. He will be discharged home whenever CT Surgery okays it. MMODL / IJN: [id number] /
--- NOTE | 2019-05-19 12:21 | P.PN ---
Subjective Progress Note Date: 05/19/19 Principal diagnosis: Large bloody pericardial effusion. Previous medical history of hypertension, hyperlipidemia, diabetes, skin cancer, recent diagnosis of new onset atrial fibrillation on closer anticoagulation. POD #2 subxiphoid pericardiostomy The patient is currently sitting up in a recliner in no acute distress. States pain is controlled on current medication regimen. Denies shortness of breath. Subxiphoid pericardiostomy tube present, remains to waterseal. Patient has been ambulatory in the hallway without difficulty. No new concerns. Objective - Vital Signs Vital signs: Vital Signs Temp 98.8 F 05/19/19 08:21 Pulse 107 H 05/19/19 08:21 Resp 18 05/19/19 08:21 BP 128/75 05/19/19 08:21 Pulse Ox 93 L 05/19/19 08:21 Intake & Output 05/18/19 05/19/19 05/19/19 18:59 06:59 18:59 Intake Total 968 480 Output Total 1100 50 Balance -132 -50 480 Weight 111.8 kg Intake: Oral 968 480 Output: Chest Tube Drainage 1050 50 Chest Tube Mediastinal 1050 50 Urine 50 Other: Voiding Method Urinal Urinal Toilet Urinal # Voids 2 2 # Bowel Movements 1 - Constitutional General appearance: Present: cooperative, no acute distress, obese - Respiratory Details: Lungs sounds clear bilaterally. Respirations even, nonlabored. Currently on room air with oxygen saturation 92%. Only able to achieve 1000 mL on his incentive spirometry. - Cardiovascular Details: S1, S2 present. No distant heart sounds noted. Irregular rate and rhythm, uncontrolled atrial fibrillation on telemetry. Palpable peripheral pulses bilaterally. No edema present. No calf pain or tenderness noted. Subxiphoid pericardiostomy tube present to waterseal, 50 mL serous drainage in the last 24 hours, no air leak present. - Gastrointestinal Gastrointestinal Comment(s): Abdomen soft, nontender, nondistended. Bowel sounds present. Tolerating diet. - Genitourinary Genitourinary Comment(s): Continues to void clear, yellow urine. - Integumentary Integumentary Comment(s): Skin is warm and dry with evidence of good perfusion. Mid chest incision well approximated with Dermabond, no redness or drainage. - Neurologic Neurologic: Present: CNII-XII intact - Musculoskeletal Musculoskeletal: Present: gait normal, strength equal bilaterally - Psychiatric Psychiatric: Present: A&O x's 3, appropriate affect, intact judgment & insight - Allied health notes Allied health notes reviewed: nursing - Labs CBC & Chem 7: 05/19/19 05:13 05/19/19 05:13 Labs: Abnormal Lab Results - Last 24 Hours (Table) 05/18/19 05/18/19 05/19/19 Range/Units 16:42 20:15 05:13 RBC 3.73 L (4.30-5.90) m/uL Hgb 11.1 L (13.0-17.5) gm/dL Hct 34.7 L (39.0-53.0) % BUN (9-20) mg/dL Glucose (74-99) mg/dL POC Glucose (mg/dL) 137 H 152 H (75-99) mg/dL 05/19/19 05/19/19 05/19/19 Range/Units 05:13 06:33 11:56 RBC (4.30-5.90) m/uL Hgb (13.0-17.5) gm/dL Hct (39.0-53.0) % BUN 23 H (9-20) mg/dL Glucose 107 H (74-99) mg/dL POC Glucose (mg/dL) 111 H 120 H (75-99) mg/dL - Imaging and Cardiology Chest x-ray: report reviewed, image reviewed Assessment and Plan Assessment: 1. Large bloody pericardial effusion, status post subxiphoid pericardiostomy 2. New onset atrial fibrillation, on Eliquis for anticoagulation 3. Hypertension 4. Hyperlipidemia 5. Diabetes Plan: 1. Subxiphoid pericardiostomy tube discontinued. 2. Atrial fibrillation management per cardiology. Eliquis discontinued, felt to be the cause of the patient's bleeding. Stroke risk vs. mortality risk from pericardial bleeding was discussed in detail with the patient and family by Dr. Schultz. 3. Encourage incentive spirometry use 10 times every hour while awake. 4. Increase activity, ambulate in hallway. 5. Pain control with current medication regimen. 6. Patient may be discharged to home from our standpoint when ok with cardiology. Follow up with Dr. Anaya in the office in 1 week. Time with Patient: Greater than 30
[2019-05-19 16:56] LABS: Glucose,Whole Blood 249 mg/dL (75-99)
[2019-05-19] MEDS: metFORMIN 500 MG TAB PO SCH (17:19)
[2019-05-19 21:07] LABS: Glucose,Whole Blood 135 mg/dL (75-99)
[2019-05-20] MEDS: SODIUM CHLORIDE 0.9% 1,000 ML IV SCH (05:00)
[2019-05-20 06:37] LABS: Glucose,Whole Blood 120 mg/dL (75-99)
[2019-05-20 08:30] VITALS: BP 126/71; PULSE 107; TEMP 98.8
[2019-05-20] MEDS: INSULIN ASPART (NovoLOG) 100 UNIT/ML VIAL SQ SCH (08:32)
[2019-05-20] MEDS: METOPROLOL TARTRATE 25 MG TAB PO SCH (08:45)
[2019-05-20] MEDS: PRAVASTATIN SODIUM 40 MG TAB PO SCH (08:45)
[2019-05-20] MEDS: MELOXICAM 7.5 MG TAB PO SCH (08:45)
[2019-05-20] MEDS: ISOSORBIDE MONONITRATE ER 30 MG TAB.ER.24H PO SCH (08:45)
[2019-05-20 10:30] VITALS: RESP 16
--- NOTE | 2019-05-20 13:02 | DS ---
DISCHARGE SUMMARY DATE OF ADMISSION: 05/15/2019 DATE OF DISCHARGE: 05/20/2019 FINAL DIAGNOSIS: Large pericardial effusion. PROCEDURES PERFORMED: Pericardial window. HOSPITAL COURSE: This is a 78-year-old gentleman who was admitted to hospital with a large pericardial effusion and new onset atrial fibrillation. The patient initially presented to Dr. Velazco, his primary search manager, with new onset atrial fibrillation, was started on an anticoagulant, 5 days later had an echo that showed a large pericardial effusion due to which he was admitted to the hospital. The patient underwent pericardial window. The chest tube was removed yesterday. This morning he is doing well. Remains in atrial fibrillation, controlled ventricular rate. Blood pressure is normal. There is no jugular venous distention. Chest is clear to auscultation and percussion. Heart exam reveals first and second heart sounds, irregular rhythm. Exam of extremities did not reveal any edema. Peripheral pulses are palpable. PLAN: Patient had hemorrhagic pericardial effusion. The cardiothoracic surgeon did not feel comfortable sending the patient home on an anticoagulant, hence, this is being stopped at this time. The patient understands the risk of stroke. CONDITION AT THE TIME OF DISCHARGE: He is hemodynamically stable and is free of significant symptoms. Discharge medications include insulin, Imdur, Mobic, Glucophage, Lopressor, Pravachol, Senokot. FOLLOWUP: Patient will be followed up by Dr. Velazco in the office. MMODL / KANDIN: [id number] /
== END 2019-05-20 11:49 | disposition home or self-care (01) | DRG 271 ==
LOC: 3SCARD 15:59
PROVIDERS: ADMIT Internal Medicine Cardiovascular Disease; ATTEND Internal Medicine Cardiovascular Disease
PROC: 02BN0ZX Excision of Pericardium, Open Approach, Diagnostic (ICD-10-PCS; principal; 2019-05-17 15:40)
PROC: 0W9D00Z Drainage of Pericardial Cavity with Drainage Device, Open Approach (ICD-10-PCS; principal; 2019-05-17 15:40)
DX: I31.3 Pericardial effusion (noninflammatory) (principal); I48.1 Persistent atrial fibrillation; E11.9 Type 2 diabetes mellitus without complications; E78.00 Pure hypercholesterolemia, unspecified; E78.5 Hyperlipidemia, unspecified; G47.30 Sleep apnea, unspecified; I10 Essential (primary) hypertension; I48.0 Paroxysmal atrial fibrillation; K21.9 Gastro-esophageal reflux disease without esophagitis; Z79.01 Long term (current) use of anticoagulants; Z79.1 Long term (current) use of non-steroidal anti-inflammatories (NSAID); Z79.84 Long term (current) use of oral hypoglycemic drugs; Z79.899 Other long term (current) drug therapy; Z80.42 Family history of malignant neoplasm of prostate; Z85.828 Personal history of other malignant neoplasm of skin
CPT/HCPCS: 71045; 71046; 80048; 80053; 83880; 84443; 85025; 85027; 85610; 85730; 86850; 86900; 86901; 88108; 88305; 93308; 94660

== ENCOUNTER 2019-05-30 17:12 | Observation (INO) | payer MEDICARE, BC ==
[2019-05-30 18:31] LABS: Basophils # (A) 0.1 k/uL (0-0.2); Basophils % (A) 1 %; Eosinophils # (A) 0.3 k/uL (0-0.7); Eosinophils % (A) 5 %; HCT 33.3 % (39.0-53.0); HGB 10.2 gm/dL (13.0-17.5); Lymphocytes # (A) 1.3 k/uL (1.0-4.8); Lymphocytes % (A) 20 %; MCH 27.4 pg (25.0-35.0); MCHC 30.5 g/dL (31.0-37.0); Mean Platelet Volume 6.9; Monocytes # (A) 0.5 k/uL (0-1.0); Monocytes % (A) 8 %; Neutrophils # (A) 4.1 k/uL (1.3-7.7); Neutrophils % (A) 64 %; Platelet Count 277 k/uL (150-450); RDW 14.3 % (11.5-15.5); WBC 6.4 k/uL (3.8-10.6)
[2019-05-30 18:35] LABS: Albumin 3.8 g/dL (3.5-5.0); Calcium 9.4 mg/dL (8.4-10.2); Magnesium 2.2 mg/dL (1.6-2.3); Total Bilirubin 0.8 mg/dL (0.2-1.3); Total Protein 6.7 g/dL (6.3-8.2)
[2019-05-30 18:41] LABS: INR 1.1 (<1.2); Partial Thromboplastin Time 24.4 sec (22.0-30.0); Prothrombin Time 11.2 sec (9.0-12.0)
[2019-05-30 18:42] LABS: Potassium 5.2 mmol/L (3.5-5.1)
--- NOTE | 2019-05-30 18:43 | XR ---
EXAMINATION TYPE: XR chest 2V DATE OF EXAM: 05/30/2019 COMPARISON: 05/19/2019 HISTORY: Syncope. Difficulty breathing TECHNIQUE: Frontal and lateral views of the chest are obtained. FINDINGS: There is mild atelectasis at the left lung base. There is mild blunting left costophrenic angle. Heart is enlarged. There are chest leads. There are no hilar masses. IMPRESSION: There is pleural reaction and atelectasis at the left lung base improved compared to las t exam. No heart failure.
[2019-05-30] MEDS ORDERED: DILTIAZEM DRIP BOLUS FROM BAG 1 MG SOLN IV ONE (19:56)
--- NOTE | 2019-05-30 19:59 | ED ---
General Adult HPI - General Chief complaint: Shortness of Breath Stated complaint: SOB Time Seen by Provider: 05/30/19 17:15 Source: patient Mode of arrival: ambulatory Limitations: no limitations - History of Present Illness Initial comments: The patient is a 78-year-old male who presents to the emergency room with reported shortness of breath. The patient does have a history of pericardial effusion with a pericardial window which was performed by Dr. Anaya on May 17. States he's been short of breath since before the surgery. He felt that at this time that he should be feeling better. Reports that he can barely walk across a room without becoming short of breath and have to stop and rest. He did follow up with his surgeon in office. States that he does have an appointment coming up with Dr. Carrera on June 13. The patient is concerned that he has had reaccumulation of the fluid. He denies any chest pain. No orthopnea. He denies a history of COPD or asthma. No lower extremity swelling. Patient denies any abdominal pain or changes in bowel or bladder habits. Denies any melanotic stools or hematochezia. Reports good by mouth intake. The patient does have a history of A. fib. States he's been taking his medications as directed. The patient is not on any anticoagulants. his pericardial fluid was grossly bloody and they thought that it may have been secondary to anticoagulant use therefore he was taken off. The patient denies cough, hemoptysis, fevers or chills. There are no other alleviating, precipita ting or modifying factors - Related Data Home Medications Medication Instructions Recorded Confirmed Cyanocobalamin [Vitamin B-12] 500 mcg PO DAILY 05/15/19 05/30/19 Isosorbide Mononitrate ER [Imdur] 30 mg PO DAILY 05/15/19 05/30/19 Krill Oil 500 mg PO DAILY 05/15/19 05/30/19 Lisinopril [Zestril] 10 mg PO DAILY 05/15/19 05/30/19 Nitroglycerin 0.4 mg SUBLINGUAL Q5M PRN 05/15/19 05/30/19 Pravastatin Sodium [Pravachol] 40 mg PO DAILY 05/15/19 05/30/19 Ubidecarenone [Co Q-10] 100 mg PO DAILY 05/15/19 05/30/19 metFORMIN HCL 1,000 mg PO HS 05/15/19 05/30/19 Previous Rx's Medication Instructions Recorded Metoprolol Tartrate [Lopressor] 50 mg PO BID #60 tab 06/01/19 Allergies Allergy/AdvReac Type Severity Reaction Status Date / Time No Known Drug Allergies Allergy Itching Verified 05/30/19 18:25 Review of Systems ROS Statement: Those systems with pertinent positive or pertinent negative responses have been documented in the HPI. ROS Other: All systems not noted in ROS Statement are negative. 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 History of Any Multi-Drug Resistant Organisms: None Reported Past Surgical History: Adenoidectomy, Cholecystectomy, Tonsillectomy Past Anesthesia/Blood Transfusion Reactions: No Reported Reaction Past Psychological History: No Psychological Hx Reported Smoking Status: Never smoker Past Alcohol Use History: Rare Past Drug Use History: None Reported - Past Family History Father Family Medical History: Prostate Disorder Additional Family Medical History / Comment(s): prostate CA Mother Family Medical History: Cancer Brother(s) Additional Family Medical History / Comment(s): Patient has one brother, he is alive, no major medical problems. Sister(s) Additional Family Medical History / Comment(s): Patient has 1 sister and she is living. No major medical problems. Patient has 3 children with no major medical problems. General Exam Limitations: no limitations General appearance: alert, in no apparent distress Head exam: Present: atraumatic, normocephalic, normal inspection Eye exam: Present: normal appearance, PERRL, EOMI. Absent: scleral icterus, conjunctival injection, periorbital swelling ENT exam: Present: normal exam, mucous membranes moist Neck exam: Present: normal inspection. Absent: tenderness, meningismus, lymphadenopathy Respiratory exam: Present: normal lung sounds bilaterally. Absent: respiratory distress, wheezes, rales, rhonchi, stridor Cardiovascular Exam: Present: tachycardia, irregular rhythm, normal heart sounds. Absent: systolic murmur, diastolic murmur, rubs, gallop, clicks GI/Abdominal exam: Present: soft, normal bowel sounds. Absent: distended, tenderness, guarding, rebound, rigid Extremities exam: Present: normal inspection, full ROM, normal capillary refill. Absent: tenderness, pedal edema, joint swelling, calf tenderness Back exam: Present: normal inspection Neurological exam: Present: alert, oriented X3, CN II-XII intact Psychiatric exam: Present: normal affect, normal mood Skin exam: Present: warm, dry, intact, normal color. Absent: rash Course Vital Signs 05/30/19 05/30/19 05/30/19 17:14 17:53 19:03 Temperature 98.0 F 98.7 F Pulse Rate 87 114 H Pulse Rate [ 115 H Loin Trimmer ] Respiratory 20 18 Rate Blood Pressure 113/71 113/69 Blood Pressure [Left Arm] O2 Sat by Pulse 98 96 Oximetry 05/30/19 05/30/19 05/30/19 20:06 20:44 21:07 Temperature Pulse Rate 107 H 111 H 95 Pulse Rate [ Loin Trimmer ] Respiratory 18 18 18 Rate Blood Pressure 115/78 101/70 125/94 Blood Pressure [Left Arm] O2 Sat by Pulse 95 95 98 Oximetry 05/30/19 05/30/19 05/30/19 21:15 21:36 22:15 Temperature Pulse Rate 118 H 112 H 120 H Pulse Rate [ Loin Trimmer ] Respiratory 18 18 18 Rate Blood Pressure 125/87 95/66 110/59 Blood Pressure [Left Arm] O2 Sat by Pulse 97 98 98 Oximetry 05/30/19 05/31/19 05/31/19 23:35 00:21 01:14 Temperature Pulse Rate 91 81 88 Pulse Rate [ Loin Trimmer ] Respiratory 18 18 18 Rate Blood Pressure 88/51 112/75 100/53 Blood Pressure [Left Arm] O2 Sat by Pulse 98 97 98 Oximetry 05/31/19 05/31/19 05/31/19 02:31 04:23 06:06 Temperature 98 F Pulse Rate 85 80 91 Pulse Rate [ Loin Trimmer ] Respiratory 18 18 18 Rate Blood Pressure 131/70 106/73 128/83 Blood Pressure [Left Arm] O2 Sat by Pulse 98 95 94 L Oximetry 05/31/19 05/31/19 05/31/19 07:00 08:00 09:44 Temperature Pulse Rate 81 99 Pulse Rate [ Loin Trimmer ] Respiratory 14 21 87 H Rate Blood Pressure 109/95 117/73 Blood Pressure [Left Arm] O2 Sat by Pulse 99 Oximetry 05/31/19 05/31/19 13:26 13:45 Temperature 98.1 F 97.6 F Pulse Rate 85 Pulse Rate [ 99 Loin Trimmer ] Respiratory 18 20 Rate Blood Pressure 128/67 Blood Pressure 128/76 [Left Arm] O2 Sat by Pulse 98 96 Oximetry EKG Findings - EKG Comments: EKG Findings:: EKG demonstrates atrial fibrillation with rapid ventricular response. QRS 88. QTC 491. No acute ST segment elevations. There is T-wave inversions in V2 and V3. Q waves in lead 3. Medical Decision Making - Medical Decision Making Upon arrival the patient was placed into room 11. He is hooked up to continuous pulse ox and cardiac monitoring. I did perform a bedside cardiac ultrasound which demonstrates a small amount of anterior pericardial fluid. No posterior fluid is identified. Images are placed on the chart. I did recommend laboratory studies as well as a chest x-ray. A 12-lead EKG is performed which demonstrates the patient is in atrial fibrillation with a rapid ventricular response. Upon return of the results I did discuss them with the patient. I did recommend treating the patient's heart rate with Cardizem. Peripheral IV had been established and the patient was started on 5 mg of Cardizem per hour without a bolus as his blood pressure is slightly low. The patient's laboratory studies are essentially unremarkable. Chest x-ray does not demonstrate any signs of fluid overload. I recommended hospital admission for a repeat echo in the morning for which the patient did agree. I called and discussed case with Dr. Anaya who refused the admission. I then called and discussed the case with Dr. Cabrera who did accept admission for the patient. I will place cardiology on consult. The patient remained in stable condition awaiting a bed on the floor - Lab Data Result diagrams: 05/31/19 05:43 05/31/19 05:43 Lab Results 05/30/19 05/30/19 05/30/19 Range/Units 17:36 17:36 17:36 WBC 6.4 (3.8-10.6) k/uL RBC 3.70 L (4.30-5.90) m/uL Hgb 10.2 L (13.0-17.5) gm/dL Hct 33.3 L (39.0-53.0) % MCV 90.0 (80.0-100.0) fL MCH 27.4 (25.0-35.0) pg MCHC 30.5 L (31.0-37.0) g/dL RDW 14.3 (11.5-15.5) % Plt Count 277 (150-450) k/uL Neutrophils % 64 % Lymphocytes % 20 % Monocytes % 8 % Eosinophils % 5 % Basophils % 1 % Neutrophils # 4.1 (1.3-7.7) k/uL Lymphocytes # 1.3 (1.0-4.8) k/uL Monocytes # 0.5 (0-1.0) k/uL Eosinophils # 0.3 (0-0.7) k/uL Basophils # 0.1 (0-0.2) k/uL PT 11.2 (9.0-12.0) sec INR 1.1 (<1.2) APTT 24.4 (22.0-30.0) sec Sodium 139 (137-145) mmol/L Potassium 5.2 H (3.5-5.1) mmol/L Chloride 106 (98-107) mmol/L Carbon Dioxide 23 (22-30) mmol/L Anion Gap 10 mmol/L BUN 27 H (9-20) mg/dL Creatinine 1.22 (0.66-1.25) mg/dL Est GFR (CKD-EPI)AfAm 66 (>60 ml/min/1.73 sqM) Est GFR (CKD-EPI)NonAf 57 (>60 ml/min/1.73 sqM) Glucose 92 (74-99) mg/dL Calcium 9.4 (8.4-10.2) mg/dL Magnesium 2.2 (1.6-2.3) mg/dL Total Bilirubin 0.8 (0.2-1.3) mg/dL AST 24 (17-59) U/L ALT 15 L (21-72) U/L Alkaline Phosphatase 68 (38-126) U/L Troponin I (0.000-0.034) ng/mL NT-Pro-B Natriuret Pep pg/mL Total Protein 6.7 (6.3-8.2) g/dL Albumin 3.8 (3.5-5.0) g/dL 05/30/19 05/30/19 Range/Units 17:36 17:36 WBC (3.8-10.6) k/uL RBC (4.30-5.90) m/uL Hgb (13.0-17.5) gm/dL Hct (39.0-53.0) % MCV (80.0-100.0) fL MCH (25.0-35.0) pg MCHC (31.0-37.0) g/dL RDW (11.5-15.5) % Plt Count (150-450) k/uL Neutrophils % % Lymphocytes % % Monocytes % % Eosinophils % % Basophils % % Neutrophils # (1.3-7.7) k/uL Lymphocytes # (1.0-4.8) k/uL Monocytes # (0-1.0) k/uL Eosinophils # (0-0.7) k/uL Basophils # (0-0.2) k/uL PT (9.0-12.0) sec INR (<1.2) APTT (22.0-30.0) sec Sodium (137-145) mmol/L Potassium (3.5-5.1) mmol/L Chloride (98-107) mmol/L Carbon Dioxide (22-30) mmol/L Anion Gap mmol/L BUN (9-20) mg/dL Creatinine (0.66-1.25) mg/dL Est GFR (CKD-EPI)AfAm (>60 ml/min/1.73 sqM) Est GFR (CKD-EPI)NonAf (>60 ml/min/1.73 sqM) Glucose (74-99) mg/dL Calcium (8.4-10.2) mg/dL Magnesium (1.6-2.3) mg/dL Total Bilirubin (0.2-1.3) mg/dL AST (17-59) U/L ALT (21-72) U/L Alkaline Phosphatase (38-126) U/L Troponin I <0.012 (0.000-0.034) ng/mL NT-Pro-B Natriuret Pep 3850 pg/mL Total Protein (6.3-8.2) g/dL Albumin (3.5-5.0) g/dL Disposition Clinical Impression: Acute respiratory insufficiency, Atrial fibrillation with RVR, S/P pericardial window creation Disposition: ADMITTED IP TO THIS HOSP Condition: Good Is patient prescribed a controlled substance at d/c from ED?: No Decision to Admit Reason: Admit from EC Decision Date: 05/30/19 Decision Time: 19:59
[2019-05-30] MEDS ORDERED: DILTIAZEM 125 MG in SODIUM CHLORIDE 0.9% 100 ML IV SCH (20:00)
[2019-05-30] MEDS ORDERED: NALOXONE 0.4 MG/ML 1 ML VIAL IV PRN (20:00)
[2019-05-31] MEDS: SODIUM CHLORIDE 0.9% 1,000 ML IV SCH (02:31)
[2019-05-31 06:14] LABS: Basophils # (A) 0.1 k/uL (0-0.2); Basophils % (A) 1 %; Eosinophils # (A) 0.3 k/uL (0-0.7); Eosinophils % (A) 6 %; HCT 32.8 % (39.0-53.0); HGB 10.6 gm/dL (13.0-17.5); Hypochromasia Slight; Lymphocytes # (A) 1.2 k/uL (1.0-4.8); Lymphocytes % (A) 24 %; MCH 29.7 pg (25.0-35.0); MCHC 32.3 g/dL (31.0-37.0); MCV 91.9 fL (80.0-100.0); Mean Platelet Volume 6.9; Monocytes # (A) 0.4 k/uL (0-1.0); Monocytes % (A) 7 %; Neutrophils # (A) 3.2 k/uL (1.3-7.7); Neutrophils % (A) 61 %; Platelet Count 234 k/uL (150-450); RBC 3.57 m/uL (4.30-5.90); RDW 14.2 % (11.5-15.5); WBC 5.2 k/uL (3.8-10.6)
[2019-05-31 06:27] LABS: Calcium 9.1 mg/dL (8.4-10.2); Potassium 4.6 mmol/L (3.5-5.1)
[2019-05-31] MEDS: PRAVASTATIN SODIUM 40 MG TAB PO SCH (09:42)
[2019-05-31] MEDS: INSULIN ASPART (NovoLOG) 100 UNIT/ML VIAL SQ SCH ×4 (09:43→21:01)
[2019-05-31] MEDS: LISINOPRIL 10 MG TAB PO SCH (09:43)
[2019-05-31] MEDS ORDERED: NITROGLYCERIN SL TABS 0.4 MG TAB SUBLINGUAL PRN (14:47)
--- NOTE | 2019-05-31 15:00 | P.HPIM ---
History of Present Illness H&P Date: 05/31/19 Chief Complaint: Shortness of breath This is a 78-year-old male patient of Dr. Mario and Dr. Velazco with a past medical history of diabetes mellitus type 2, chronic atrial fibrillation, pericardial effusion, hypertension, hyperlipidemia, obstructive sleep apnea on CPAP. Patient gives history that he was having difficulty breathing and was seen a doctor polys office and had echocardiogram was then directly admitted to the hospital on May 15 through May 20 for pericardial effusion. Patient underwent a subxiphoid pericardiostomy with Dr. Anaya on May 17. Pericardial fluid showed reactive mesothelial cells and atypical lymphocytes. No malignant cells noted. Pericardial biopsy revealed chronic inflammation, no acute pericarditis. Patient was stabilized and discharged home. He was not resumed on anticoagulation because pericardial fluid was grossly bloody. He denies any blood in his stools. Patient states he has had follow-up with Dr. Anaya in the outpatient setting. Patient states he has increasing shortness of breath especially with exertion. He denies orthopnea. He states his legs feel weak. He denies any numbness or tingling. He denies any nausea. No chest pain or cough. He denies any palpitations. Patient came and required [facility] emergency center for evaluation. EKG atrial fibrillation with RVR running 114. Patient was afebrile, blood pressure 113/71, pulse ox 98%. Hemoglobin 10.2, platelet count 277, white count 6.4. Sodium 139, potassium 4.2, chloride 106, CO2 23, BUN 27, creatinine 1.22, blood sugar 92. Troponin was negative. ProBNP 3850. Chest x-ray reveals pleural reaction and atelectasis at the left lung base improved compared to last exam. Patient was started on Cardizem drip and admitted to the cardiac stepdown unit and cardiology consult requested. Review of Systems Constitutional: Reports fatigue, Reports weakness, Denies anorexia, Denies chills, Denies fever, Denies poor appetite Ears, nose, mouth and throat: Reports vertigo, Denies headache, Denies nasal congestion, Denies nasal discharge, Denies sore throat Cardiovascular: Reports dyspnea on exertion, Reports lightheadedness, Reports shortness of breath, Denies chest pain, Denies leg edema, Denies orthopnea, Denies palpitations, Denies syncope Respiratory: Reports dyspnea, Reports sleep apnea, Denies cough, Denies cough with sputum, Denies excessive sputum, Denies hemoptysis, Denies home oxygen Gastrointestinal: Denies abdominal pain, Denies diarrhea, Denies loss of appetit e, Denies nausea, Denies vomiting Genitourinary: Denies dysuria, Denies urinary frequency Musculoskeletal: Denies muscle weakness, Denies myalgias Integumentary: Denies pruritus, Denies rash, Denies wounds Neurological: Denies change in mentation, Denies confusion, Denies gait dysfunction, Denies numbness, Denies weakness Psychiatric: Denies anxiety, Denies depression Endocrine: Denies fatigue, Denies weight change Past Medical History Past Medical History: Atrial Fibrillation, Cancer, Diabetes Mellitus, GERD/Reflux, Hyperlipidemia, Hypertension, Musculoskeletal Disorder, Sleep Apnea/CPAP/BIPAP Additional Past Medical History / Comment(s): a-fib as of 05/10/19, 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 He drinks alcohol rarely. No illicit drug use. 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 He lives at home with his . Past Drug Use History: None Reported - Past Family History Father Family Medical History: Prostate Disorder Additional Family Medical History / Comment(s): Father at age 78 from prostate cancer. Mother Family Medical History: Cancer Additional Family Medical History / Comment(s): Mother at age 91 from old age. Brother(s) Additional Family Medical History / Comment(s): Patient has one brother, he is alive, no major medical problems. Sister(s) Additional Family Medical History / Comment(s): Patient has 1 sister and she is living. No major medical problems. Patient has 3 children with no major medical problems. Medications and Allergies Home Medications Medication Instructions Recorded Confirmed Type Celecoxib [CeleBREX] 200 mg PO DAILY 05/15/19 05/30/19 History Cyanocobalamin [Vitamin B-12] 500 mcg PO DAILY 05/15/19 05/30/19 History Isosorbide Mononitrate ER [Imdur] 30 mg PO DAILY 05/15/19 05/30/19 History Krill Oil 500 mg PO DAILY 05/15/19 05/30/19 History Lisinopril [Zestril] 10 mg PO DAILY 05/15/19 05/30/19 History Metoprolol Tartrate 25 mg PO BID 05/15/19 05/30/19 History Nitroglycerin 0.4 mg SUBLINGUAL Q5M PRN 05/15/19 05/30/19 History Pravastatin Sodium [Pravachol] 40 mg PO DAILY 05/15/19 05/30/19 History Ubidecarenone [Co Q-10] 100 mg PO DAILY 05/15/19 05/30/19 History metFORMIN HCL 1,000 mg PO HS 05/15/19 05/30/19 History Allergies Allergy/AdvReac Type Severity Reaction Status Date / Time No Known Drug Allergies Allergy Itching Verified 05/30/19 18:25 Physical Exam Vitals: Vital Signs Temp Pulse Pulse Resp BP Pulse Ox 05/31/19 09:44 87 H 117/73 99 05/31/19 08:00 99 21 05/31/19 07:00 81 14 109/95 05/31/19 06:06 98 F 91 18 128/83 94 L 05/31/19 04:23 80 18 106/73 95 05/31/19 02:31 85 18 131/70 98 05/31/19 01:14 88 18 100/53 98 05/31/19 00:21 81 18 112/75 97 05/30/19 23:35 91 18 88/51 98 05/30/19 22:15 120 H 18 110/59 98 05/30/19 21:36 112 H 18 95/66 98 05/30/19 21:15 118 H 18 125/87 97 05/30/19 21:07 95 18 125/94 98 05/30/19 20:44 111 H 18 101/70 95 05/30/19 20:06 107 H 18 115/78 95 05/30/19 19:03 98.7 F 114 H 18 113/69 96 05/30/19 17:53 115 H 05/30/19 17:14 98.0 F 87 20 113/71 98 Intake and Output 05/30/19 05/31/19 05/31/19 22:59 06:59 14:59 Other: Weight 111.13 kg Gen: This is a 78-year-old, obese male. He is sitting the ER and appears to be comfortable. No acute distress. HEENT: Head is atraumatic, normocephalic. Pupils equal, round. Sclerae is anicteric. NECK: Supple. No JVD. No lymphadenopathy. No thyromegaly. LUNGS: Clear to auscultation. No wheezes or rhonchi. No intercostal retractions. HEART: Irregularly irregular rate and rhythm. No murmur. ABDOMEN: Soft. Bowel sounds are present. No masses. No tenderness. EXTREMITIES: No pedal edema. No calf tenderness. NEUROLOGICAL: Patient is awake, alert and oriented x3. Cranial nerves 2 through 12 are grossly intact. Results CBC & Chem 7: 05/31/19 05:43 05/31/19 05:43 Labs: Abnormal Lab Results - Last 24 Hours (Table) 05/30/19 05/30/19 05/31/19 Range/Units 17:36 17:36 05:43 RBC 3.70 L 3.57 L (4.30-5.90) m/uL Hgb 10.2 L 10.6 L (13.0-17.5) gm/dL Hct 33.3 L 32.8 L (39.0-53.0) % MCHC 30.5 L (31.0-37.0) g/dL Potassium 5.2 H (3.5-5.1) mmol/L BUN 27 H (9-20) mg/dL Glucose (74-99) mg/dL ALT 15 L (21-72) U/L 05/31/19 Range/Units 05:43 RBC (4.30-5.90) m/uL Hgb (13.0-17.5) gm/dL Hct (39.0-53.0) % MCHC (31.0-37.0) g/dL Potassium (3.5-5.1) mmol/L BUN 22 H (9-20) mg/dL Glucose 131 H (74-99) mg/dL ALT (21-72) U/L Thrombosis Risk Factor Assmnt - DVT/VTE Prophylaxis DVT/VTE Prophylaxis: Pharmacologic Prophylaxis ordered Assessment and Plan Plan: 1. Chronic atrial fibrillation with RVR. Patient was started on Cardizem drip in the emergency center. Cardiology consult. Will resume Lopressor 25 mg twice a day. Patient has been off anticoagulation due to bloody pericardial effusion. Troponins have been negative on 3 draws. 2. Recent admission for large bloody pericardial effusion status post pericardial window and chest tube, stable. Etiology is unknown. ProBNP 3850. 3. Diabetes mellitus type 2. Continue metformin 1000 mg at bedtime, NovoLog scale before meals and at bedtime. 4. Hypertension. Continue lisinopril 10 mg daily, Lopressor 25 mg twice daily, Imdur 30 mg daily. 5. Hyperlipidemia. Continue pravastatin 40 mg daily 6. DVT prophylaxis. SCDs and PILAR hose. 7. GI prophylaxis. Pepcid. Patient will be admitted to the hospital for a minimum of 2 night stay. Discharge plan: Return home Impression and plan of care have been directed as dictated by the signing physician. Nicole Gordon nurse practitioner acting as scribe for signing physician.
[2019-05-31] MEDS ORDERED: METOPROLOL TARTRATE 25 MG TAB PO STA (15:11)
[2019-05-31 16:10] VITALS: BMI 35.3
[2019-05-31 16:57] LABS: Glucose,Whole Blood 119 mg/dL (75-99)
[2019-05-31 17:51] LABS: C Reactive Protein <5.0 mg/L (<10.0)
--- NOTE | 2019-05-31 20:49 | CONS ---
CONSULTATION This patient's medical records, electronic medical records, as well as emergency room records reviewed. This patient came to the emergency room for cardiac evaluation. This patient was admitted recently with a new onset of atrial fibrillation and patient had a large pericardial effusion with impending tamponade. The patient underwent a pericardial window. Patient was found to have a bloody pericardial effusion. The biopsy is negative for any malignancy. Exact etiology of the bloody pericardial fluid was not clear, but was not clear whether it is due to the Eliquis or patient could have some viral infection. Since the discharge from the hospital, patient gives a history that he is overall feeling well. His legs feel weak. He denies any significant shortness of breath. Denies any orthopnea or PND. Denies any fever or chills. In the emergency room, patient was in atrial fibrillation with a heart rate of 110-115. Blood pressure was 113/71 mmHg, oxygen saturation was 96%. Chest x-ray did not show any significant failure. PAST MEDICAL HISTORY: Includes a history of atrial fibrillation, new onset of atrial fibrillation, hyperlipidemia, sleep apnea, appendicectomy, cholecystectomy, and tonsillectomy. SOCIAL HISTORY: Patient is a lifelong smoker. He drinks alcohol rarely. HOME MEDICATIONS: Include Celebrex 200 mg daily, isosorbide 30 mg daily, Zestril 10 mg daily, Pravachol 40 mg daily, metformin 1000 mg at q.h.s. PHYSICAL EXAMINATION: At present reveals a 78-year-old gentleman who does not appear to be in any acute distress. Patient's heart rate now is 80-90 per minute, blood pressure is 125/73 mmHg. Head ENT examination is negative. Neck is supple. There is no increase in jugular venous pressure. Both the carotid pulses are felt. There is no bruit. Chest is symmetrical. Heart: The PMI is not felt. First and second heart sounds are normal. There is no evidence of any murmur. Lungs are clinically clear to auscultation and percussion. ABDOMEN: Soft. EXTREMITIES: Peripheral pulsations are 2+. The patient's proBNP level is 3800. Electrolytes are normal. FINAL IMPRESSION: This patient came with generalized weakness and weakness in the legs, exact etiology undetermined. Clinically patient is not in any significant overt heart failure. The patient has had atrial fibrillation with a moderately rapid ventricular response. The heart rate is better controlled now. We will discontinue Cardizem and increase the Lopressor to 50 mg in the morning, 25 mg the evening. We will get a free T4 and TSH. We will also get a Sed Rate and C-reactive protein and serum CELINA level. MMODL / IJN: [id number] /
[2019-05-31 20:54] LABS: Glucose,Whole Blood 135 mg/dL (75-99)
[2019-05-31] MEDS ORDERED: metFORMIN 500 MG TAB PO SCH (21:00)
[2019-05-31] MEDS ORDERED: METOPROLOL TARTRATE 25 MG TAB PO SCH ×2 (21:00)
[2019-06-01 06:19] LABS: Glucose,Whole Blood 111 mg/dL (75-99)
[2019-06-01] MEDS: SODIUM CHLORIDE 0.9% 1,000 ML IV SCH (06:51)
[2019-06-01] MEDS: INSULIN ASPART (NovoLOG) 100 UNIT/ML VIAL SQ SCH (06:52)
[2019-06-01] MEDS: PRAVASTATIN SODIUM 40 MG TAB PO SCH (08:24)
[2019-06-01] MEDS: LISINOPRIL 10 MG TAB PO SCH (08:24)
[2019-06-01] MEDS ORDERED: CYANOCOBALAMIN 500 MCG TAB PO SCH (09:00)
[2019-06-01] MEDS ORDERED: METOPROLOL TARTRATE 50 MG TAB PO SCH (09:00)
[2019-06-01] MEDS ORDERED: FAMOTIDINE 20 MG TAB PO SCH (09:00)
[2019-06-01] MEDS ORDERED: ISOSORBIDE MONONITRATE ER 30 MG TAB.ER.24H PO SCH (09:00)
--- NOTE | 2019-06-01 11:14 | ECHOF ---
Referral Reason:shortness of breath, hx pericardial effusion MEASUREMENTS -------- HEIGHT: 172.7 cm WEIGHT: 111.1 kg BP: FINDINGS -------- Limited Study to eval Pericardial Effusion: Pt Had Pericardial window 05/07. There is a small, generalized pericardial effusion present. CONCLUSIONS -------- 1. Limited Study to eval Pericardial Effusion: Pt Had Pericardial window 05/07. 2. There is a small, generalized pericardial effusion present. COMMERCIAL ESTIMATOR: Narda Burleson RDCS
[2019-06-01 11:44] LABS: Glucose,Whole Blood 99 mg/dL (75-99)
[2019-06-01 11:54] VITALS: BP 104/64; PULSE 79; RESP 12; TEMP 97.8
--- NOTE | 2019-06-01 14:03 | P.DS ---
Providers Date of admission: 05/30/19 20:00 Expected date of discharge: 06/01/19 Attending physician: John Cabrera Consults: 05/30/19 20:02 Consult Physician Urgent Consulting Provider: [facility] Consult Reason/Comments: afib with rvr Do you want consulting provider notified?: Yes Primary care physician: Anisha Mario [facility] Course: This is a 78-year-old male patient of Dr. Mario and Dr. Velazco with a past medical history of diabetes mellitus type 2, chronic atrial fibrillation, pericardial effusion, hypertension, hyperlipidemia, obstructive sleep apnea on CPAP. Patient gives history that he was having difficulty breathing and was seen a doctor polys office and had echocardiogram was then directly admitted to the hospital on May 15 through May 20 for pericardial effusion. Patient underwent a subxiphoid pericardiostomy with Dr. Anaya on May 17. Pericardial fluid showed reactive mesothelial cells and atypical lymphocytes. No malignant cells noted. Pericardial biopsy revealed chronic inflammation, no acute pericarditis. Patient was stabilized and discharged home. He was not resumed on anticoagulation because pericardial fluid was grossly bloody. He denies any blood in his stools. Patient states he has had follow-up with Dr. Anaya in the outpatient setting. Patient states he has increasing shortness of breath especially with exertion. He denies orthopnea. He states his legs feel weak. He denies any numbness or tingling. He denies any nausea. No chest pain or cough. He denies any palpitations. Patient came and required [facility] emergency center for evaluation. EKG atrial fibrillation with RVR running 114. Patient was afebrile, blood pressure 113/71, pulse ox 98%. Hemoglobin 10.2, platelet count 277, white count 6.4. Sodium 139, potassium 4.2, chloride 106, CO2 23, BUN 27, creatinine 1.22, blood sugar 92. Troponin was negative. ProBNP 3850. Chest x-ray reveals pleural reaction and atelectasis at the left lung base improved compared to last exam. Patient was started on Cardizem drip and admitted to the cardiac stepdown unit and cardiology consult requested. 06/01: Patient was seen by Dr. VC Eckert and Cardizem drip was discontinued yesterday. He did increase Lopressor to 50 mg in the morning and 25 mg in the evening. TSH 0.967, sed rate 20, CRP less than 5, CELINA negative. Heart rate 79, blood pressure 104/64, pulse ox 100% on room air, afebrile. Patient states that he is feeling much better today from yesterday. Shortness of breath is improved today. patient monitor has been atrial fibrillation with rate controlled. Discussed case with Dr. Eckert and decision was made to hold anticoagulation until patient has follow-up with Dr. Aguirre. We will plan to increase Lopressor at home to 50 twice daily. Patient will be discharged home today in stable condition. Discharge diagnoses: 1. Chronic atrial fibrillation with RVR. 2. Recent admission for large bloody pericardial effusion status post pericardial window and chest tube, stable. Etiology is unknown. 3. Diabetes mellitus type 2. 4. Hypertension. 5. Hyperlipidemia. Discharge plan: Return home Impression and plan of care have been directed as dictated by the signing physician. Nicole Gordon nurse practitioner acting as scribe for signing physician. Patient Condition at Discharge: Good Plan - Discharge Summary Discharge Rx Participant: No New Discharge Prescriptions: New Metoprolol Tartrate [Lopressor] 50 mg PO BID #60 tab Continue Isosorbide Mononitrate ER [Imdur] 30 mg PO DAILY metFORMIN HCL 1,000 mg PO HS Ubidecarenone [Co Q-10] 100 mg PO DAILY Pravastatin Sodium [Pravachol] 40 mg PO DAILY Nitroglycerin 0.4 mg SUBLINGUAL Q5M PRN PRN Reason: Chest Pain Krill Oil 500 mg PO DAILY Cyanocobalamin [Vitamin B-12] 500 mcg PO DAILY Lisinopril [Zestril] 10 mg PO DAILY Discontinued Metoprolol Tartrate 25 mg PO BID Celecoxib [CeleBREX] 200 mg PO DAILY Discharge Medication List Cyanocobalamin [Vitamin B-12] 500 mcg PO DAILY 05/15/19 [History] Isosorbide Mononitrate ER [Imdur] 30 mg PO DAILY 05/15/19 [History] Krill Oil 500 mg PO DAILY 05/15/19 [History] Lisinopril [Zestril] 10 mg PO DAILY 05/15/19 [History] Nitroglycerin 0.4 mg SUBLINGUAL Q5M PRN 05/15/19 [History] Pravastatin Sodium [Pravachol] 40 mg PO DAILY 05/15/19 [History] Ubidecarenone [Co Q-10] 100 mg PO DAILY 05/15/19 [History] metFORMIN HCL 1,000 mg PO HS 05/15/19 [History] Metoprolol Tartrate [Lopressor] 50 mg PO BID #60 tab 06/01/19 [Rx] Follow up Appointment(s)/Referral(s): Anisha Mario MD [Primary Care Provider] - 1-2 days (Office will call with follow up appointment. ) Jarred Velazco MD [STAFF PHYSICIAN] - 06/13/19 3:30 pm Patient Instructions/Handouts: A-fib (Atrial Fibrillation) (DC) Discharge Disposition: HOME SELF-CARE
== END 2019-06-01 12:59 | disposition home or self-care (01) ==
LOC: SUPCPDRO 17:12 → EC 17:12 → 3SCARD 20:00
PROVIDERS: ADMIT Internal Medicine Geriatric Medicine; ATTEND Internal Medicine Geriatric Medicine
DX: I48.2 Chronic atrial fibrillation (principal); R03.1 Nonspecific low blood-pressure reading; J98.11 Atelectasis; E11.9 Type 2 diabetes mellitus without complications; I10 Essential (primary) hypertension; E78.5 Hyperlipidemia, unspecified; K21.9 Gastro-esophageal reflux disease without esophagitis; G47.33 Obstructive sleep apnea (adult) (pediatric); Z99.89 Dependence on other enabling machines and devices; E66.9 Obesity, unspecified; Z68.35 Body mass index [BMI] 35.0-35.9, adult; Z79.1 Long term (current) use of non-steroidal anti-inflammatories (NSAID); Z79.899 Other long term (current) drug therapy; Z79.84 Long term (current) use of oral hypoglycemic drugs; Z90.49 Acquired absence of other specified parts of digestive tract; Z85.828 Personal history of other malignant neoplasm of skin; Z86.79 Personal history of other diseases of the circulatory system; Z80.42 Family history of malignant neoplasm of prostate
CPT/HCPCS: 96366 ×3; 96365; 99285; 36415; 93005; 93308; 83880; 80053; 80048; 85652; 83735; 84443; 84484 ×2; 85025 ×2; 85610; 85730; 86140; 86038; 71046; G0378 ×3

== ENCOUNTER → 2019-06-13 | Outpatient (CLI) | payer MEDICARE, BC ==
--- NOTE | 2019-06-13 10:52 | XR ---
EXAMINATION TYPE: XR chest 2V DATE OF EXAM: 06/13/2019 COMPARISON: Chest x-ray 2 weeks ago. HISTORY: Sided pleural effusion. TECHNIQUE: Frontal and lateral views of the chest are obtained. FINDINGS: There is interval improvement in left basilar opacity. Right lung remains clear. The cardi ac silhouette size remains enlarged with atherosclerotic and ectatic aorta. Cholecystectomy clips are noted. The osseous structures are intact. IMPRESSION: Improved aeration left lung base with some residual atelectasis and/or infiltrate. No re sidual left-sided effusion noted.
== END ==
LOC: RADXRMAIN 10:35
PROVIDERS: ATTEND Family Medicine
DX: J98.11 Atelectasis (principal); I48.91 Unspecified atrial fibrillation
CPT/HCPCS: 71046

== ENCOUNTER → 2019-06-28 | Outpatient (CLI) | payer MEDICARE, BC ==
--- NOTE | 2019-06-29 11:00 | ECHOF ---
Referral Reason:I31.3 Pericardial effusion (noninflammatory) MEASUREMENTS -------- HEIGHT: 172.7 cm WEIGHT: 104.3 kg BP: RVIDd: 3.4 cm (< 3.3) IVSd: 2.0 cm (0.6 - 1.1) LVIDd: 3.9 cm (3.9 - 5.3) LVPWd: 1.8 cm (0.6 - 1.1) IVSs: 2.4 cm LVIDs: 3.1 cm LVPWs: 2.5 cm LAESV Index (A-L): 67.69 ml/m Ao Diam: 3.8 cm (2.0 - 3.7) AV Cusp: 2.5 cm (1.5 - 2.6) LA Diam: 6.2 cm (2.7 - 3.8) AR PHT: 324 ms RAP: 5.00 mmHg RVSP: 39.63 mmHg FINDINGS -------- Atrial fibrillation with RVR. This was a technically adequate study. The left ventricular size is normal. There is severe concentric left ventricular hypertrophy. Ove rall left ventricular systolic function is mildly impaired with, an EF between 45 - 50 %. Left vent ricular fillimg pressure cannot be estimated due to Atrial fibrillation. The right ventricle is mildly enlarged. LA is severely dilated >40 ml/m2 The right atrium was not well visualized. Interatrial and interventricular septum intact. The aortic valve is trileaflet and appears structurally normal. There is mild aortic regurgitation. There is no evidence of aortic stenosis. [id number] mitral regurgitation is present. Mild tricuspid regurgitation present. There is mild pulmonary hypertension. The right ventricular systolic pressure, as measured by Doppler, is 39.63mmHg. There is no pulmonic regurgitation present. The aortic root size is normal. IVC Not well visulized. There is a small pericardial effusion located near the left ventricle. CONCLUSIONS -------- 1. Atrial fibrillation with RVR. 2. This was a technically adequate study. 3. The left ventricular size is normal. 4. There is severe concentric left ventricular hypertrophy. 5. Overall left ventricular systolic function is mildly impaired with, an EF between 45 - 50 %. 6. Left ventricular fillimg pressure cannot be estimated due to Atrial fibrillation. 7. The right ventricle is mildly enlarged. 8. LA is severely dilated >40 ml/m2 9. The right atrium was not well visualized. 10. Interatrial and interventricular septum intact. 11. The aortic valve is trileaflet and appears structurally normal. 12. There is mild aortic regurgitation. 13. There is no evidence of aortic stenosis. 14. [id number] mitral regurgitation is present. 15. Mild tricuspid regurgitation present. 16. There is mild pulmonary hypertension. 17. The right ventricular systolic pressure, as measured by Doppler, is 39.63mmHg. 18. There is no pulmonic regurgitation present. 19. The aortic root size is normal. 20. IVC Not well visulized. 21. There is a small pericardial effusion located near the left ventricle. INTAKE SPECIALIST: Yohana Phan RDCS
== END | disposition home or self-care (01) ==
LOC: RADECHMAIN 14:15
PROVIDERS: ATTEND Family Medicine
DX: I31.3 Pericardial effusion (noninflammatory) (principal); I48.91 Unspecified atrial fibrillation; R93.1 Abnormal findings on diagnostic imaging of heart and coronary circulation; I08.3 Combined rheumatic disorders of mitral, aortic and tricuspid valves; I27.20 Pulmonary hypertension, unspecified
CPT/HCPCS: 93306